=== PATIENT | male | born 1955 | race Caucasian/White ===

== ENCOUNTER 2017-07-28 11:52 | Emergency (ER) | payer OTHER ==
[~2017-07-28] VITALS: Ht 175.3 cm; Wt 101.7 kg
[2017-07-28 13:55] LABS: HEMATOCRIT 39.4 % (38.0-50.0); HEMOGLOBIN 12.8 G/DL (12.5-16.6); MCH 27.8 PG (29.0-34.0); MCHC 32.5 G/DL (30.0-36.0); MCV 85.7 FL (86-99); PLATELET COUNT 417 K/uL (156-360); RBC DIS.WIDTH-CV 13.2 % (11.8-14.6); RBC DIS.WIDTH-SD 41.6 % (39-53)
[2017-07-28 14:06] LABS: CHLORIDE 101 mEq/L (99-109); POTASSIUM 3.9 mEq/L (3.7-5.4); SODIUM 139 mEq/L (136-147)
[2017-07-28 14:08] LABS: GLUCOSE 90 mg/dL (70-99)
[2017-07-28 14:12] LABS: CREATININE 1.5 mg/dL (0.6-1.3); GFR ESTIMATE (CALCULATED) 50 mL/min/ (58.99-99999)
[2017-07-28 14:13] LABS: UREA NITROGEN (BUN) 21 mg/dL (9-23)
[2017-07-28 14:23] LABS: TROP-I INTERPRETATION NEGATIVE; TROPONIN-I < 0.01 ng/mL (0.0-0.30)
[2017-07-28 15:07] LABS: BASE EXCESS -2.7 mEq/L (-3 to +3); BICARBONATE 22.6 mEq/L (22-26); CARBOXY HGB 2.2 % (0-5); PCO2 40 mm Hg (35-45); PO2 65 mm Hg (80-100); pH 7.36 (7.35-7.45)
[2017-07-28 15:08] LABS: COMMENTS - BLOOD GASES A+C+; FI02 21 %; SITE RR; TOTAL RESP RATE 20 resp/min
[2017-07-28] MEDS ORDERED: AZITHROMYCIN250 MG PO (16:44)
[2017-07-28 16:54] LABS: C DIFF TOXIN NEGATIVE (NEGATIVE)
[2017-07-28 17:33] VITALS: BP 113/57
== END 2017-07-28 17:33 | disposition home or self-care (01) ==
LOC: EME 11:52
PROVIDERS: Emergency Medicine; Physician Assistant
DX: J18.9 Pneumonia, unspecified organism (principal); E86.0 Dehydration; K44.9 Diaphragmatic hernia without obstruction or gangrene; E78.5 Hyperlipidemia, unspecified; I10 Essential (primary) hypertension; Z87.891 Personal history of nicotine dependence
CPT/HCPCS: 36600; 71046; 74177; 80048; 81003; 82803; 83605; 83630; 84484; 85027; 87040; 87045; 87046; 87493; 87506; 93005; 99281; 99285

== ENCOUNTER → 2017-08-14 | Outpatient (CLI) | payer BC ==
[~2017-08-14] MED LIST: AZITHROMYCIN250 MG PO
== END | disposition home or self-care (01) ==
DX: R13.10 Dysphagia, unspecified (principal); Z87.19 Personal history of other diseases of the digestive system
CPT/HCPCS: 92611 GN